=== PATIENT | male | born 1995 | race African-American/Black ===

== ENCOUNTER 2019-03-09 17:52 | Emergency (ER) | payer SELFPAY ==
[~2019-03-09] VITALS: Ht 175.3 cm; Wt 100.0 kg
[2019-03-09] MEDS: HYDROCODONE/ACETAMINOPHEN 5-325 MG TABLET PO ONE (18:53)
[2019-03-09 19:48] VITALS: BP 124/88
== END 2019-03-09 19:56 | disposition home or self-care (01) ==
LOC: EMS 17:54
DX: S00.03XA Contusion of scalp, initial encounter (principal); F17.210 Nicotine dependence, cigarettes, uncomplicated; W17.89XA Other fall from one level to another, initial encounter; Y93.89 Activity, other specified; Y92.89 Other specified places as the place of occurrence of the external cause; Y99.8 Other external cause status
CPT/HCPCS: 70450; 72125; 99406